=== PATIENT | male | born 1950 | race Caucasian/White ===

== ENCOUNTER 2016-10-08 16:27 | Emergency (ER) | payer OTHER ==
[~2016-10-08] VITALS: Ht 172.7 cm; Wt 77.1 kg
[2016-10-08 16:30] VITALS: BP 149/80
--- NOTE | 2016-10-08 16:35 | NUR ---
66/M VINAYAK FROM [facility] FOR RIGHT FIRST TOE PAIN. PT AMBULATORY. STS HURTS WHEN HE WALKS. CMS INTACT.
[2016-10-08] MEDS ORDERED: SEROQUEL400 MG PO (16:37)
[2016-10-08] MEDS ORDERED: KLONOPIN0.5 MG PO (16:37)
[2016-10-08] MEDS ORDERED: LIORESAL10 MG PO (16:37)
[2016-10-08] MEDS ORDERED: LEXAPRO20 MG PO (16:37)
[2016-10-08] MEDS ORDERED: SEROQUEL100 MG PO (16:37)
[2016-10-08] MEDS ORDERED: PROTONIX40 MG PO (16:37)
[2016-10-08] MEDS ORDERED: TEGRETOL200 MG PO (16:40)
[2016-10-08] MEDS ORDERED: COMBIVENT RESPI1 SPR IH (16:40)
[2016-10-08] MEDS ORDERED: ELIQUIS5 MG PO (16:40)
--- NOTE | 2016-10-08 17:00 | NUR ---
WOUND CLEANED. BACTRACIN APPLIED AND TOE WRAPPED. PT HEAVENLY WELL.
[2016-10-08 17:45] VITALS: BP 144/80
--- NOTE | 2016-10-08 17:45 | NUR ---
PT AWAITING IN LOBBY FOR TRANSPORT BACK TO [facility]. MR NOTIFIED TO [employer] PT.
--- NOTE | 2016-10-08 17:45 | NUR ---
Patient discharged with v/s stable. Written and verbal after care instructions given and explained. Patient alert, oriented and verbalized understanding of instructions. Wheel Chair Assisted with steady gait. All questions addressed prior to discharge. ID band removed. Patient advised to follow up with PMD. Rx of KEFLEX given. Patient educated on indication of medication including possible reaction and side effects. Opportunity to ask questions provided and answered.
== END 2016-10-08 17:45 | disposition home or self-care (01) ==
LOC: MED 16:27
DX: L60.0 Ingrowing nail (principal); L03.031 Cellulitis of right toe; F32.9 Major depressive disorder, single episode, unspecified; Z79.899 Other long term (current) drug therapy

== ENCOUNTER 2022-08-25 09:05 | Emergency (ER) | payer OTHER, MEDICAID ==
[~2022-08-25] VITALS: Ht 170.2 cm; Wt 102.1 kg
[~2022-08-25 09:05] MED LIST: ALBU1SPR IH; APIX5TAB PO; BACL10TA4 PO; CARB200T1 PO; CLON0.5T PO; ESCI20TA PO; PANT40EC PO; QUET100T PO; QUET400T PO
--- NOTE | 2022-08-25 09:06 | NUR ---
pt placed in bed 11 by amr
[2022-08-25 09:08] VITALS: BP 144/74
[2022-08-25 10:28] LABS: BASOPHILS % (AUTO) 0.2 % (0.0-2.0); EOSINOPHILS # (AUTO) 0.1 K/uL (0-0.4); EOSINOPHILS % (AUTO) 0.5 % (0.0-4.0); HEMATOCRIT 39.1 % (36-52); HEMOGLOBIN 13.3 g/dL (12.0-18.0); LYMPHOCYTES # (AUTO) 0.6 K/uL (2.0-11.5); LYMPHOCYTES % (AUTO) 5.2 % (20.5-51.1); MEAN CORPUSCULAR HEMOGLOBIN 28 pg (27-31); MEAN CORPUSCULAR HGB CONC 34 g/dL (33-37); MEAN CORPUSCULAR VOLUME 81.5 fL (80-94); MONOCYTES # (AUTO) 0.9 K/uL (0.8-1.0); MONOCYTES % (AUTO) 7.5 % (1.7-9.3); NEUTROPHILS # (AUTO) 10.1 K/uL (1.8-7.7); NEUTROPHILS % (AUTO) 86.6 % (42.2-75.2); PLATELET COUNT (AUTO) 315 K/uL (140-450); RED BLOOD CELL COUNT(AUTO) 4.79 MIL/uL (4.20-6.10); RED CELL DISTRIBUTION WIDTH 14.5 % (11.6-13.7); WHITE BLOOD COUNT (AUTO) 11.7 K/uL (4.8-10.8)
--- NOTE | 2022-08-25 10:31 | NUR ---
PT BIB [facility] C/O WOUND TO ABDOMEN X1 MONTH. IV INSERTED TO LEFT FA #[id number].
[2022-08-25 10:35] LABS: ALBUMIN 2.5 g/dL (3.4-5.0); ANION GAP 15.6 (8-16); ASPARTATE AMINOTRANSFERASE 35 U/L (15-37); CARBON DIOXIDE 25.1 mmol/L (21-32); CHLORIDE 94 mmol/L (98-107); CREATININE 0.8 mg/dL (0.6-1.3); GLUCOSE 169 mg/dL (74-106); POTASSIUM 3.7 mmol/L (3.5-5.1); SODIUM SERUM 131 mmol/L (136-145); TOTAL BILIRUBIN 0.8 mg/dL (0.0-1.0); UREA NITROGEN, BLOOD 11 mg/dL (7-18)
--- NOTE | 2022-08-25 11:01 | NUR ---
PT TAKEN TO CT
[2022-08-25] MEDS ORDERED: COMMUNICATION ORDER MC SCH (12:45)
[2022-08-25 12:50] LABS: PROTHROMBIN TIME 10.9 secs (10.8-13.4)
[2022-08-25] MEDS ORDERED: ESMOLOL IV PRN (13:40)
[2022-08-25] MEDS ORDERED: VANCOMYCIN 1,000 MG in DEXTROSE 5% 250 ML IV ONE ×4 (14:40)
--- NOTE | 2022-08-25 15:18 | NUR ---
REPORT GIVEN TO NICOLETTE MOORE AT [facility] FOR CONTINUATION OF CARE
[2022-08-25] MEDS ORDERED: VANCOMYCIN 1,000 MG VIAL ONE (15:20)
--- NOTE | 2022-08-25 15:58 | NUR ---
[address] [facility] CCT UNIT IS BEDSIDE
[2022-08-25 16:29] VITALS: BP 111/46
--- NOTE | 2022-08-25 16:29 | NUR ---
REPORT GIVEN TO SEMAJ RN AT BEDSIDE FOR CCRT TX TO [facility] FOR HIGHER LEVEL OF CARE. PT IN GUARDED CONDITION.
== END 2022-08-25 16:29 | disposition short-term general hospital (02) ==
LOC: MED 09:05
DX: S30.92XD Unspecified superficial injury of abdominal wall, subsequent encounter (principal); Z20.822 Contact with and (suspected) exposure to COVID-19; Z48.00 Encounter for change or removal of nonsurgical wound dressing; X58.XXXD Exposure to other specified factors, subsequent encounter
CPT/HCPCS: 36415; 71275; 74177; 80053; 83605; 85025; 85610; 85730; 86886; 86900; 86901; 87426; 96365; 96366; 96368; 99285; J3370; Q9967